=== PATIENT | female | born 1975 | race Caucasian/White ===

== ENCOUNTER 2017-03-16 12:28 | Day surgery (SDC) | payer BC ==
[~2017-03-16 12:28] MED LIST: Buffered Lidocaine 0.9% SYRIN* 5 ML/SYR SYRINGE INTRADERM ONE; NS 0.9% 1000 ML* 1,000 ML IV SCH
[2017-03-16] MEDS ORDERED: Buffered Lidocaine 0.9% SYRIN* 5 ML/SYR SYRINGE ONE (12:34)
[2017-03-16] MEDS ORDERED: Midazolam* 1 MG/ML 2 ML VIAL (2 MG) ONE (13:39)
[2017-03-16] MEDS ORDERED: fentaNYL* 50 MCG/ML 2 ML VIAL (100 MCG VIAL) ONE (13:39)
[2017-03-16] MEDS ORDERED: Oxymetazoline 0.05% NASAL SPR* 15 ML BTL ONE (14:16)
[2017-03-16] MEDS ORDERED: Bacitracin OINTMENT* 1 TUBE ONE (14:17)
[2017-03-16] MEDS ORDERED: Lidocaine 4% TOPICAL* 50 ML TOP.SOLN ONE (14:17)
[2017-03-16] MEDS ORDERED: EPINEPHrine AMP 1 MG/ML ONE (14:18)
[2017-03-16] MEDS ORDERED: Lidocaine 1% MPF wEPI 200,000* 30 ML SDV ONE (14:20)
[2017-03-16] MEDS ORDERED: Mivacurium Chloride* 20 MG/10 ML VIAL IV ONE (14:38)
[2017-03-16] MEDS ORDERED: Famotidine IV* 10 MG/ML 2 ML (20 mg) ONE (14:38)
[2017-03-16] MEDS ORDERED: Dexamethasone IV* 4 MG/ML 1 ML (4 MG) ONE (14:38)
[2017-03-16] MEDS ORDERED: Propofol* 10 MG/ML 20 ML BTL IV PUSH ONE (14:38)
[2017-03-16] MEDS ORDERED: Lidocaine 2% PF * 5 ML VIAL ONE (14:38)
[2017-03-16] MEDS ORDERED: Ondansetron INJ* 2 MG/ML VIAL ONE (14:38)
[2017-03-16] MEDS ORDERED: PROCHLORPERAZINE INJ 5 MG/ML 2 ML VIAL IV PRN (15:59)
[2017-03-16] MEDS ORDERED: Ondansetron INJ* 2 MG/ML VIAL IV PRN (15:59)
[2017-03-16] MEDS ORDERED: Acetaminophen TAB* 325 MG PO PRN (15:59)
[2017-03-16] MEDS ORDERED: Scopolamine 1.5 mg* PATCH TRANSDERM PRN (15:59)
[2017-03-16] MEDS: HYDROcodone/ACETAMIN 5-325 MG* 1 TAB PO PRN ×2 (16:30→16:49)
[2017-03-16] MEDS ORDERED: HYDROcodone/ACETAMIN 5-325 MG* 1 TAB ONE ×2 (16:30→16:48)
[2017-03-16] MEDS ORDERED: Acetaminophen TAB* 325 MG ONE (16:38)
[2017-03-16 16:48] VITALS: BP 124/111
--- NOTE | 2017-03-17 00:18 | OP ---
DATE OF OPERATION: 03/16/17 [facility] DATE OF : 77 SURGEON: Linden Sheridan MD. ANESTHESIOLOGIST: Dr. Morejon ANESTHESIA: General endotracheal anesthesia. PRE-OP DIAGNOSES: Septal deviation, inferior turbinate hypertrophy. POST-OP DIAGNOSES: Septal deviation, inferior turbinate hypertrophy. OPERATIVE PROCEDURE: Nasal septoplasty with inferior turbinate reduction _ fracture. COMPLICATIONS: None. DISPOSITION: Good. SPECIMENS: None. BLOOD LOSS: Minimum. DESCRIPTION OF PROCEDURE: The patient was taken to the operating room and placed in the supine position on the operating table. General anesthesia was induced, and she was orotracheally intubated. Her nose was packed with cottonoids and impregnated with oxymetazoline and 4% lidocaine. She was turned and draped for the surgery. After several minutes, the packs were removed and her septum and inferior turbinates were injected along with some lidocaine and 1 :100,000 epinephrine. A hemitransfixion incision was made in the right anterior septum, mucoperichondrial flap was raised. Bony cartilaginous junction was opened. A posterior contralateral flap was raised and a freer elevator was used to create a window in the anterior cartilage, which was then elevated and removed and later it was morcellized and placed back into the mucoperichondrial pocket. The double action scissor was used to make a cut in the posterior bony cartilage just superior to a large spur and then inferior to this was grasped with a Reinier and removed. Some spurring along the maxillary crest was removed with the Reinier. At this time, this relieved the obstruction that was caused by this after being pushed off the maxillary crest to the left side. The cartilage was now morcellized and placed into that mucoperichondrial pocket. The hemitransfixion incision was closed with 4- 0 simple interrupted chromic. A 4-0 gut quilting stitch was then used to reapproximate the mucosal surfaces. An incision was made in the anterior inferior turbinate and a pocket was raised off the bone with the caudal elevator. The turbinate debrider was then inserted in this pocket and the submucosa was debrided. This was done bilaterally. They were then half fractured. The magnetic splints were smeared with bacitracin. They were placed on either side of the septum in the nose and sutured in place with a Prolene. The patient tolerated this procedure well, no complications. [id number] #: [id number] [facility] CENTERBrittany
[2017-03-19] MEDS ORDERED: Scopolamine PATCH Remove* 1 NOTE MISC PATCH OFF ONE (15:59)
== END 2017-03-16 17:06 | disposition home or self-care (01) ==
LOC: OR 12:28
PROVIDERS: ATTEND Otolaryngology
DX: J34.2 Deviated nasal septum (principal); J34.3 Hypertrophy of nasal turbinates; Z88.2 Allergy status to sulfonamides; E07.9 Disorder of thyroid, unspecified; F17.210 Nicotine dependence, cigarettes, uncomplicated; R09.81 Nasal congestion
CPT/HCPCS: 81025; A9270-GY; J0171; J1100; J2001; J2250; J2405; J2704; J3010